=== PATIENT | female | born 1940 | race Caucasian/White ===

== ENCOUNTER → 2018-09-04 | Outpatient (CLI) | payer MEDICARE, OTHER ==
--- NOTE | 2018-09-04 11:28 | RADIOLOGY IMAGING REPORT ---
FACILITY: [facility] PATIENT NAME: Kirsty Randall : 1940 MR: [id number] V: [id number] EXAM DATE: ORDERING PHYSICIAN: MARINO LERNER TECHNOLOGIST: Location: [facility] Patient: Kirsty Randall : 1940 Visit/Account:[id number] Date of Sevice: 09/04/2018 EXAMINATION: Doppler ultrasound carotid HISTORY: Amnesia COMPARISON: None. TECHNIQUE: Real-time grayscale, color flow and Doppler sonography of the cervical carotid and vertebr al arteries is performed. Stenosis % is determined from velocity criteria extrapolated from diameter data as defined by the Soc iety of Radiologists in Ultrasound Consensus Conference Radiology 2003; 229;340-346. FINDINGS: Plaque: Mild soft plaque is present bilaterally. Partially calcified plaque is present particularly within the left carotid bulb. Slight plaque surface irregularity is seen in each carotid bulb and b ifurcation. Waveforms: Normal. Vertebral arteries: Antegrade flow in both vertebral arteries. Peak systolic velocities are listed below in centimeters/second: Right: CCA proximal: 104 CCA mid: 83 CCA distal: 64 Bulb: 55 ICA proximal: 50 ICA mid: 84 ICA distal: 88 ECA: 78 Vertebral: 55 ICA/CCA ratio: 1.06 Left: CCA proximal: 102 CCA mid: 73 CCA distal: 58 Bulb: 53 ICA proximal: 44 ICA mid: 75 ICA distal: 116 ECA: 80 Vertebral: 41 ICA/CCA ratio: 1.60 IMPRESSION: 1. No hemodynamically significant stenosis of greater than 50% bilaterally. 2. Atherosclerosis and slight plaque surface irregularity within each carotid bulb and bifurcation. This may contribute to plaque instability. Report Dictated By: Leonor Polanco MD at 09/04/2018 11:18 AM Report E-Signed By: Leonor Polanco MD at 09/04/2018 11:23 AM WSN:[id number]
--- NOTE | 2018-09-04 14:39 | RADIOLOGY IMAGING REPORT ---
FACILITY: [facility] PATIENT NAME: Kirsty Randall : 1940 MR: [id number] V: [id number] EXAM DATE: ORDERING PHYSICIAN: MARINO LERNER TECHNOLOGIST: Location: [facility] Patient: Kirsty Randall : 1940 Visit/Account:[id number] Date of Sevice: 09/04/2018 Examination: MR brain without contrast History: Amnesia Comparison: None Technique: Multiplane MR imaging was performed through the brain without contrast. Findings: Diffusion: None Ventricles: Ex vacuo dilatation. Midline shift: None Extraaxial fluid: None. Midline craniocervical structures: Degenerative pannus posterior to the dens. Parenchyma: Mild atrophy. Confluent periventricular and deep white matter high signal and multiple s mall white matter high signal patches. Vascular flow voids: Normal Orbits and paranasal sinuses: Cataract postsurgical change. Mild ethmoid sinus scattered mucosal thi ckening. Other: No significant additional finding. Impression: 1. No acute intracranial abnormality. 2. Moderate to severe chronic small vessel ischemic change. 3. Mild parenchymal atrophy. Report Dictated By: Darrin Kapadia MD at 09/04/2018 2:21 PM Report E-Signed By: Darrin Kapadia MD at 09/04/2018 2:33 PM WSN:[id number]
== END ==
LOC: MRI 08:12
PROVIDERS: ATTEND Physician Assistant
DX: R41.3 Other amnesia (principal)
CPT/HCPCS: 70551; 93880